=== PATIENT | female | born 1990 | race Caucasian/White ===

== ENCOUNTER 2025-05-23 19:54 | Emergency (ER) | payer SELFPAY ==
[~2025-05-23] VITALS: Ht 152.4 cm; Wt 75.0 kg
[2025-05-23 20:01] VITALS: TEMP 36.9; O2SAT 100
[2025-05-23 20:22] LABS: BASOPHILS % 0.8 % (0.0-2.0); EOSINOPHILS % 4.7 % (0.0-5.0); HEMATOCRIT. 36.8 % (36.0-48.0); HEMOGLOBIN. 12.2 g/dL (12.0-16.0); LYMPHOCYTES % 36.3 % (20.0-50.0); MEAN PLATELET VOLUME 10.7 fl (7.4-10.4); MONOCYTES % 7.2 % (2.0-8.0); NEUTROPHILS % 51.0 % (40.0-76.0); PLATELET 305 x1000/uL (130-400); RED BLOOD CELL COUNT 4.39 mill/uL (4.2-5.4); RED CELL DISTRIBUTION WIDTH 13.4 % (11.6-14.6)
[2025-05-23 20:57] LABS: CREATININE 0.8 mg/dL (0.6-1.0)
[2025-05-23 20:58] LABS: UREA NITROGEN BLOOD 8 mg/dL (9-23)
[2025-05-23 20:59] LABS: TROPONIN I HIGH SENSITIVITY < 4 ng/L (3.0-34)
[2025-05-23] MEDS ORDERED: IBUP-2028 MT (22:30)
[2025-05-23] MEDS: IBUPROFEN 600MG TABLET PO ONE (22:59)
[2025-05-23 23:05] VITALS: BP 147/68; PULSE 74; RESP 14; O2SAT 100
== END 2025-05-23 23:07 | disposition home or self-care (01) ==
LOC: ER 19:54
DX: R07.2 Precordial pain (principal); R06.02 Shortness of breath; E11.65 Type 2 diabetes mellitus with hyperglycemia; Z20.822 Contact with and (suspected) exposure to COVID-19
CPT/HCPCS: 36415; 71045; 80048; 84484; 85025; 85379; 87426; 93005; 99285